=== PATIENT | female | born 1935 | race Hispanic/Latino ===

== ENCOUNTER 2018-06-08 14:41 | Inpatient (IN) | payer MEDICARE, BC ==
--- NOTE | 2018-06-08 15:25 | ED PDOC ---
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 History mostly obtained from grandchildren secondary to patient's progressively worsening dementia. Her family states that a neighbor with spare domingo was checking on patient and found her on her knees with a bloody nose. Patient is unsure if she loss consciousness but states she felt general tiredness and weakness after a dental exam this morning. Upon arrival to ED, patient reports feeling better with complaint of a right-sided headache. Otherwise, she denies any neck pain, leg pain, abdominal pain, shortness of breath, urinary complaint, numbness, or tingling sensation. Of note, patient has had recent nosebleeds prior to syncopal episode but also has Coumadin use. Cardio: Dr. Reese Yancey Past Medical History Reviewed: Historical Data, Nursing Documentation, Vital Signs Vital Signs: Last Vital Signs Temp 98.9 F 06/08/18 14:49 Pulse 60 06/08/18 14:49 Resp 18 06/08/18 14:49 BP 142/67 06/08/18 14:49 Pulse Ox 98 06/08/18 14:49 - Medical History PMH: CHF, Dementia, Diabetes, HTN, Hypercholesterolemia - Family History Family History: States: Unknown Family Hx - Home Medications Home Medications: Ambulatory Orders Medication Instructions Recorded Digoxin [Digitek] 125 mcg PO DAILY 06/08/18 Donepezil [Aricept] 10 mg PO HS 06/08/18 Furosemide [Lasix] 20 mg PO DAILY 06/08/18 Glyburide [Micronase] 1.25 mg PO DAILY 06/08/18 Lisinopril [Zestril] 5 mg PO DAILY 06/08/18 Metoprolol Succinate XL [Toprol XL] 200 mg PO DAILY 06/08/18 Pioglitazone [Actos] 15 mg PO DAILY 06/08/18 Potassium Chloride [K-Dur 20 mEq 20 meq PO DAILY 06/08/18 ER Tab] Sennosides A and B [Senokot Tab] 1 tab PO HS PRN 06/08/18 Warfarin [Coumadin] 2.5 mg PO DAILY 06/08/18 metFORMIN [glucOPHAGE] 850 mg PO BID 06/08/18 - Allergies Allergies/Adverse Reactions: Allergies Allergy/AdvReac Type Severity Reaction Status Date / Time fruit Allergy RASH Uncoded 06/08/18 14:49 Review of Systems ROS Statement: Except As Marked, All Systems Reviewed And Found Negative Constitutional: Positive for: Weakness, Malaise ENT: Positive for: Nose Discharge (blood) Respiratory: Negative for: Shortness of Breath Gastrointestinal: Negative for: Abdominal Pain Genitourinary Female: Negative for: Dysuria, Incontinence, Hematuria Musculoskeletal: Negative for: Neck Pain, Leg Pain Neurological: Positive for: Headache (right-siedd). Negative for: Numbness (or tingling sensation) Physical Exam - Reviewed Nursing Documentation Reviewed: Yes Vital Signs Reviewed: Yes - Physical Exam Appears: Positive for: Well, Non-toxic, No Acute Distress Head Exam: Positive for: ATRAUMATIC, NORMAL INSPECTION, NORMOCEPHALIC Skin: Positive for: Normal Color Eye Exam: Positive for: Normal appearance, EOMI, PERRL ENT: Positive for: Other (dried blood in right nare. (-) active bleeding). Negative for: Pharyngeal Erythema Neck: Positive for: Normal, Supple Cardiovascular/Chest: Positive for: Regular Rate, Rhythm, Chest Non Tender Respiratory: Positive for: Normal Breath Sounds. Negative for: Respiratory Distress Gastrointestinal/Abdominal: Positive for: Normal Exam, Soft. Negative for: Tenderness Extremity: Positive for: Normal ROM (upper/lower with 5/5 strength). Negative for: Pedal Edema, Calf Tenderness, Deformity, Swelling (or ecchymosis) Neurologic/Psych: Positive for: Alert, dictionary editor II-XII (grossly intact), Oriented. Negative for: Motor/Sensory Deficits, Aphasia - Laboratory Results Result Diagrams: 06/08/18 16:36 06/08/18 17:30 Interpretation Of Abn Labs: dig less then 0.4 - ECG ECG: Positive for: Interpreted By Me, Viewed By Me ECG Rhythm: Positive for: Atrial Fibrillation O2 Sat by Pulse Oximetry: 98 (RA) Pulse Ox Interpretation: Normal - Radiology X-Ray: Read By Radiologist X-Ray Interpretation: No Acute Disease - CT Scan/US ct Other Rad Studies (CT/US): Read By Radiologist Other Rad Interpretation: sinusitis - Progress ED Course And Treament: 185: Pending Dr. Yancey call back. Pt. with sinusitis, will give augmentin oral. Is not septic. No an acute infection. Afib uncontrolled causing elevated hr, not infectious etiology. Dr. Hilliard to take over care. Fu on Dr. Yancey. Medical Decision Making Medical Decision Making: Time: 152 Initial Plan: * Accucheck Scribe Attestation: Documented by Katia Duenas, acting as a scribe for Veto Rodriges MD. Provider Scribe Attestation: All medical record entries made by the Scribe were at my direction and personally dictated by me. I have reviewed the chart and agree that the record accurately reflects my personal performance of the history, physical exam, medical decision making, and the department course for this patient. I have also personally directed, reviewed, and agree with the discharge instructions and disposition. Disposition - Clinical Impression Clinical Impression: Sinusitis, Syncope, Afib - Patient ED Disposition Is Patient to be Admitted: Transfer of Care - Disposition Disposition Time: 19:03 Condition: FAIR Patient Signed Over To: Lorenza Hilliard
[2018-06-08] MEDS ORDERED: Sodium Chloride 0.9% 1,000 ML IV ONE (15:30)
--- NOTE | 2018-06-08 16:12 | RAD ---
Date of service: 06/08/2018 HISTORY: Code Stroke COMPARISON: No prior. FINDINGS: LUNGS: The lungs are well inflated and clear. PLEURA: No pleural effusions or pneumothorax. CARDIOVASCULAR: The heart is normal in size. No aortic atherosclerotic calcification present. OSSEOUS STRUCTURES: Within normal limits for the patient's age. VISUALIZED UPPER ABDOMEN: Normal. OTHER FINDINGS: None. IMPRESSION: No active pulmonary disease.
[2018-06-08 17:37] LABS: BASO % 0.3 % (0.0-2.0); LYMPH % 7.7 % (20.0-40.0); MEAN CELL VOLUME 84.5 fl (81.0-99.0); MEAN CORPUSCULAR HEMOGLOBIN 26.7 pg (27.0-31.0); MEAN CORPUSCULAR HGB CONC 31.6 g/dL (33.0-37.0); MEAN PLATELET VOLUME 9.5 fl (7.2-11.7); MONO # 1.2 K/uL (0.0-0.8); MONO % 9.4 % (0.0-10.0); NEUT # 10.4 K/uL (1.8-7.0); NEUT % 82.6 % (50.0-75.0); PLATELET COUNT 253 K/uL (130-400); WHITE BLOOD COUNT 12.5 K/uL (4.8-10.8)
[2018-06-08 17:49] LABS: ALB/GLOB RATIO 1.1 (1.0-2.1); ALBUMIN 4.3 g/dL (3.5-5.0); ALT/SGPT 26 U/L (9-52); AST/SGOT 25 U/L (14-36); BLOOD UREA NITROGEN 17 mg/dl (7-17); CALCIUM 10.1 mg/dL (8.4-10.2); GFR NON-AFRICAN AMERICAN 60; HDL CHOLESTEROL 51 MG/DL (30-70)
[2018-06-08 18:01] LABS: LDL CHOLESTEROL 92 mg/dL (0-129)
--- NOTE | 2018-06-08 18:16 | CT ---
Date of service: 06/08/2018 PROCEDURE: CT HEAD WITHOUT CONTRAST. HISTORY: weakness COMPARISON: None available. TECHNIQUE: Axial computed tomography images were obtained through the head/brain without intravenous contrast. Radiation dose: Total exam DLP = 742.03 mGy-cm. This CT exam was performed using one or more of the following dose reduction techniques: Automated exposure control, adjustment of the mA and/or kV according to patient size, and/or use of iterative reconstruction technique. FINDINGS: HEMORRHAGE: No intracranial hemorrhage. BRAIN: There are mild chronic microangiopathic changes. There is no mass, mass effect or abnormal extra-axial fluid collection. There is no territorial infarction. The midline sagittal structures are normal. VENTRICLES: There is mild age-related global parenchymal volume loss and proportionate enlargement of the ventricles and cortical sulci. CALVARIUM: There is no calvarial fracture or extracranial soft tissue swelling. PARANASAL SINUSES: There is high attenuation soft tissue in the right maxillary sinus, right ethmoid air cells and right frontal sinus with expansion of the right maxillary sinus. The left sided paranasal sinuses are predominantly clear. MASTOID AIR CELLS: Predominantly clear. OTHER FINDINGS: None. IMPRESSION: No acute intracranial abnormality. Mild chronic microangiopathic changes and mild age-related global parenchymal volume loss. 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
[2018-06-08] MEDS ORDERED: Amoxicillin-Clav 875-125 mg Tab PO STA (18:55)
[2018-06-08 19:07] LABS: INR 4.2
[2018-06-08 19:08] LABS: PROTHROMBIN TIME 47.6 Seconds (9.8-13.1)
[2018-06-08 19:09] LABS: PARTIAL THROMBOPLASTIN TIME 49.6 Seconds (25.6-37.1)
[2018-06-08] MEDS ORDERED: Digoxin 500 mcg/2ml (0.5 mg/2ml) Inj IVP STA (19:17)
[2018-06-08] MEDS ORDERED: Digoxin 500 mcg/2ml (0.5 mg/2ml) Inj ONE (19:59)
[2018-06-08 20:00] LABS: ANISOCYTOSIS SLIGHT; BANDS 5 % (0-2); HYPOCHROMIC SLIGHT; LYMPHOCYTE 9 % (20-50); MICROCYTOSIS SLIGHT; MONOCYTE 9 % (0-10); NEUTROPHIL 77 % (42-75); PLATELET ESTIMATE NORMAL (NORMAL); POIKILOCYTOSIS SLIGHT; TOTAL CELLS COUNTED 100
[2018-06-08] MEDS ORDERED: Amoxicillin-Clav 875-125 mg Tab PO ONE (20:00)
[2018-06-08 20:01] LABS: ACANTHOCYTES SLIGHT
[2018-06-09 05:53] LABS: PARTIAL THROMBOPLASTIN TIME 45.5 Seconds (25.6-37.1)
[2018-06-09] MEDS ORDERED: Influenza Vaccine (5 YR UP)/PF 60 MCG/0.5 ML SYR IM ONE (06:00)
[2018-06-09 06:28] LABS: INR 4.1; PROTHROMBIN TIME 46.3 Seconds (9.8-13.1)
[2018-06-09] MEDS: Digoxin 125 mcg (0.125 mg) Tab PO SCH (08:39)
[2018-06-09] MEDS: Metoprolol Succinate 100 mg XL Tab PO SCH (08:39)
--- NOTE | 2018-06-09 08:39 | CARD ---
APPROVED REPORT Date of service: 06/09/2018 EKG Measurement Heart [id number] <Conclusion> Atrial fibrillation ST abnormality, possible inferior subendocardial injury Abnormal ECG
[2018-06-09] MEDS: Potassium Chloride 20 mEq ER Tab PO SCH (08:41)
--- NOTE | 2018-06-09 08:47 | CARD ---
APPROVED REPORT Date of service: 06/08/2018 EKG Measurement Heart [id number] <Conclusion> Atrial fibrillation with rapid ventricular response Marked ST abnormality, possible inferolateral subendocardial injury Abnormal ECG
[2018-06-09] MEDS ORDERED: GLYBURIDE 1.25 MG PO SCH (09:00)
[2018-06-09] MEDS ORDERED: Digoxin 500 mcg/2ml (0.5 mg/2ml) Inj IVP ONE ×2 (09:32→19:39)
--- NOTE | 2018-06-09 09:44 | CP.PCM.HP ---
History of Present Illness - History of Present Illness History of Present Illness: This 82-year-old female who is known to me since her hospitalization in March 2013 was brought to the emergency room when she could not stand up from a chair. Her neighbors came to her help and called emergency medical facilities section director who brought her to the emergency room. Her patient steadfastly denies a fall. She has a history of diabetes and chronic atrial fibrillation and early dementia. She has never suffered a myocardial infarction and has congestive cardiac failure as a consequence of atrial fibrillation for which she takes furosemide. She has been on warfarin and gets her INR checked re gularly every 2 months and her warfarin dose is appropriately adjusted. During last year her main symptom has been significant lower back pain which hampers her physical activities. The patient denies pedal edema or orthopnea. She has been taking furosemide and potassium supplement. Physical examination shows an elderly lady who is alert awake coherent afebrile and is able to carry on a conversation while propped up in bed. Telemetry shows atrial fibrillation with a ventricular rate often in the range of 140 to 160 bpm. (Her serum digoxin level was found to be less than 0.4 g per mL.) Her blo od pressure was 150/70 mmHg. Her jugular venous pressure was not elevated there was no edema over her lower extremities. The pedal pulses were feeble. Extremities were warm and nailbeds were pink there was no central or peripheral cyanosis. There was no clubbing. The first and second heart sounds were normal there was no murmur or gallop. There were no rales. Her abdomen was soft liver and spleen are not palpable. Her electrocardiogram showed atrial fibrillation at rapid ventricular rate with ST abnormalities secondary to digitalis effect. There were no Q waves on the electric cart a gram. Review off her echocardiogram from her 2013 admission shows a preserved left ventricle systolic function with markedly dilated right and left atria. This is strongly suggestive off left ventricular diastolic dysfunction. Her lab data shows a normal hemoglobin and hematocrit with an INR of 4.1. Her BUN/creatinine and electrolytes were normal. Liver profile was normal. Impression: Atrial fibrillation with rapid ventricular rate. 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 Diabetes mellitus. Early dementia. Sinusitis. Patient's inability to stand up from a sitting position was most likely secondary to atrial fibrillation with very rapid heart rate as a consequence of for low serum digoxin level. The patient will be started on intravenous Cardizem drip to immediately control her heart rate she is getting additional digoxin to manage her heart rate. She will get an echocardiogram to evaluate his left ventricle systolic function since her last echocardiogram was in March 2013. Since her INR is 4.1 her warfarin is being held and daily INR would be monitored. She is started on Augmentin for sinusitis. Present on Admission - Present on Admission Any Indicators Present on Admission: No Past Patient History - Past Medical History & Family History Past Medical History?: Yes - Past Social History Smoking Status: Never Smoked - CARDIAC Hx Cardiac Disorders: Yes Hx Congestive Heart Failure: Yes Hx Hypercholesterolemia: Yes Hx Hypertension: Yes - PULMONARY Hx Respiratory Disorders: No - NEUROLOGICAL Hx Neurological Disorder: Yes Hx Dementia: Yes - HEENT Hx HEENT Problems: No - RENAL Hx Chronic Kidney Disease: No - ENDOCRINE/METABOLIC Hx Endocrine Disorders: No - HEMATOLOGICAL/ONCOLOGICAL Hx Blood Disorders: No - INTEGUMENTARY Hx Dermatological Problems: No - MUSCULOSKELETAL/RHEUMATOLOGICAL Hx Musculoskeletal Disorders: No Hx Falls: Yes - GASTROINTESTINAL Hx Gastrointestinal Disorders: No - GENITOURINARY/GYNECOLOGICAL Hx Genitourinary Disorders: No - PSYCHIATRIC Hx Psychophysiologic Disorder: No Hx Substance Use: No - SURGICAL HISTORY Hx Surgeries: No - ANESTHESIA Hx Anesthesia: No Hx Anesthesia Reactions: No Meds Allergies/Adverse Reactions: Allergies Allergy/AdvReac Type Severity Reaction Status Date / Time fruit Allergy RASH Uncoded 06/08/18 14:49 Results - Vital Signs Recent Vital Signs: Last Vital Signs Temp 97.2 F L 06/09/18 08:00 Pulse 110 H 06/09/18 08:43 Resp 18 06/09/18 08:00 BP 167/71 H 06/09/18 08:43 Pulse Ox 97 06/09/18 08:00 - Labs Result Diagrams: 06/08/18 16:36 06/08/18 17:30 Labs: Laboratory Results - last 24 hr 06/08/18 06/08/18 06/08/18 15:12 16:36 17:30 WBC 12.5 H RBC 4.50 Hgb 12.0 Hct 38.0 MCV 84.5 MCH 26.7 L MCHC 31.6 L RDW 13.0 Plt Count 253 MPV 9.5 Neut % (Auto) 82.6 H Lymph % (Auto) 7.7 L Harlan % (Auto) 9.4 Eos % (Auto) 0.0 Baso % (Auto) 0.3 Neut # (Auto) 10.4 H Lymph # (Auto) 1.0 Harlan # (Auto) 1.2 H Eos # (Auto) 0.0 Baso # (Auto) 0.0 Neutrophils % (Manual) 77 H Band Neutrophils % 5 H Lymphocytes % (Manual) 9 L Monocytes % (Manual) 9 Platelet Estimate Normal Hypochromasia (manual) Slight Poikilocytosis (manual Slight Anisocytosis (manual) Slight Microcytosis (manual) Slight Acanthocytes (Spur) Slight PT INR APTT Sodium 139 Potassium 3.9 Chloride 101 Carbon Dioxide 27 Anion Gap 15 BUN 17 Creatinine 0.9 Est GFR ( Amer) > 60 Est GFR (Non-Af Amer) 60 POC Glucose (mg/dL) 186 H Random Glucose 186 H Calcium 10.1 Total Bilirubin 0.8 AST 25 ALT 26 Alkaline Phosphatase 87 Troponin I 0.0260 Total Protein 8.1 Albumin 4.3 Globulin 3.9 Albumin/Globulin Ratio 1.1 Triglycerides 144 Cholesterol 157 LDL Cholesterol Direct 92 HDL Cholesterol 51 Digoxin Blood Type Antibody Screen BBK History Checked 06/08/18 06/08/18 06/08/18 17:30 17:30 18:20 WBC RBC Hgb Hct MCV MCH MCHC RDW Plt Count MPV Neut % (Auto) Lymph % (Auto) Harlan % (Auto) Eos % (Auto) Baso % (Auto) Neut # (Auto) Lymph # (Auto) Harlan # (Auto) Eos # (Auto) Baso # (Auto) Neutrophils % (Manual) Band Neutrophils % Lymphocytes % (Manual) Monocytes % (Manual) Platelet Estimate Hypochromasia (manual) Poikilocytosis (manual Anisocytosis (manual) Microcytosis (manual) Acanthocytes (Spur) PT 47.6 H* INR 4.2 APTT 49.6 H Sodium Potassium Chloride Carbon Dioxide Anion Gap BUN Creatinine Est GFR ( Amer) Est GFR (Non-Af Amer) POC Glucose (mg/dL) Random Glucose Calcium Total Bilirubin AST ALT Alkaline Phosphatase Troponin I Total Protein Albumin Globulin Albumin/Globulin Ratio Triglycerides Cholesterol LDL Cholesterol Direct HDL Cholesterol Digoxin < 0.4 L Blood Type O POSITIVE Antibody Screen Negative BBK History Checked Patient has bt 06/08/18 06/09/18 06/09/18 21:23 04:39 05:27 WBC RBC Hgb Hct MCV MCH MCHC RDW Plt Count MPV Neut % (Auto) Lymph % (Auto) Harlan % (Auto) Eos % (Auto) Baso % (Auto) Neut # (Auto) Lymph # (Auto) Harlan # (Auto) Eos # (Auto) Baso # (Auto) Neutrophils % (Manual) Band Neutrophils % Lymphocytes % (Manual) Monocytes % (Manual) Platelet Estimate Hypochromasia (manual) Poikilocytosis (manual Anisocytosis (manual) Microcytosis (manual) Acanthocytes (Spur) PT 46.3 H* INR 4.1 APTT 45.5 H Sodium Potassium Chloride Carbon Dioxide Anion Gap BUN Creatinine Est GFR ( Amer) Est GFR (Non-Af Amer) POC Glucose (mg/dL) 176 H 139 H Random Glucose Calcium Total Bilirubin AST ALT Alkaline Phosphatase Troponin I Total Protein Albumin Globulin Albumin/Globulin Ratio Triglycerides Cholesterol LDL Cholesterol Direct HDL Cholesterol Digoxin Blood Type Antibody Screen BBK History Checked
[2018-06-09] MEDS: Amoxicillin-Clav 875-125 mg Tab PO SCH ×2 (10:51→21:21)
[2018-06-10 05:50] LABS: PROTHROMBIN TIME 34.1 Seconds (9.8-13.1)
--- NOTE | 2018-06-10 09:23 | PQF ---
PROVIDER RESPONSE TEXT: Atrial fibrillation is known since 2012. So, it is chronic. REVIEWER QUERY TEXT: Atrial Fibrillation Type Atrial fibrillation is documented in the Medical Record. Please specify the type if known Such as: -- Chronic -- Paroxysmal -- Permanent -- Persistent -- Other, please specify H and P: A-fib with RVRCongestive cardiac failure which is left ventricular diastolic and chronic. Di abetes mellitus. Early dementia. Sinusitis. Patient's inability to stand up from a sitting position w as most likely secondary to atrial fibrillation with very rapid heart rate as a consequence of for lo w serum digoxin level. The patient will be started on intravenous Cardizem drip to immediately contro l her heart rate she is getting additional digoxin to manage her heart rate. She will get an echocard iogram to evaluate his left ventricle systolic function since her last echocardiogram was in March 04. Since her INR is 4.1 her warfarin is being held and daily INR would be monitored. The patient's Clinical Indicators include: -- Query created by: Eli Cohn on 06/09/2018 10:18 AM Electronically signed by: Reese Yancey MD 06/10/2018 9:21 AM
--- NOTE | 2018-06-10 09:23 | PQF ---
PROVIDER RESPONSE TEXT: The patient never lost conciousness. So, no syncope. REVIEWER QUERY TEXT: Symptom Underlying Cause Please document the underlying diagnosis causing the Syncope ? 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 Her family states that a neighbor with spare domingo was checking on patient and found her on her knees with a bloody nose. Patient is unsure if she loss consciousness; g eneral tiredness and weakness after a dental exam this morning Clinical Impression: Sinusitis, Syncope, Afib H and P: Atrial fibrillation with rapid ventricular rate. Congestive cardiac failure which is left ve ntricular diastolic and chronic. Diabetes mellitus. Early dementia. Sinusitis. Patient's inability to stand up from a sitting position was most likely secondary to atrial fibrillation with very rapid he art rate as a consequence of for low serum digoxin level. The patient's Clinical Indicators include: -- Query created by: Eli Cohn on 06/09/2018 10:16 AM Electronically signed by: Reese Yancey MD 06/10/2018 9:21 AM
[2018-06-10] MEDS: Digoxin 125 mcg (0.125 mg) Tab PO SCH (10:00)
[2018-06-10] MEDS: Amoxicillin-Clav 875-125 mg Tab PO SCH ×2 (10:00→21:53)
[2018-06-10] MEDS: Potassium Chloride 20 mEq ER Tab PO SCH (10:01)
[2018-06-10] MEDS: Metoprolol Succinate 100 mg XL Tab PO SCH (10:04)
[2018-06-10] MEDS ORDERED: Metoprolol Succinate 100 mg XL Tab PO SCH (10:30)
--- NOTE | 2018-06-10 10:37 | CP.PCM.PN ---
Subjective - Date & Time of Evaluation Date of Evaluation: 06/10/18 Time of Evaluation: 09:30 - Subjective Subjective: Saw patient this morning with her daughter in attendance. The patient reports that she slept well during the night and denies any palpitations or feeling of sudden shortness of breath. Telemetry continues to show atrial fibrillation with heart rates mostly between 100 and 120 bpm and has received multiple doses of IV digoxin to control her heart rate. This morning while still on intravenous Cardizem drip at 5 mg per hour her heart rate mostly ranges between 80 and 100 bpm. The patient has been on 200 mg of metoprolol succinate daily. This morning her serum digoxin level was 2.4 g per mL. The patient denies any feeling of nausea and has not had any vomiting. The patient is able to lie virtually flat and breathe comfortably at 16 breaths per minute and can carry on a conversation. Her blood pressure was 150/80 mmHg. Her jugular venous pressure was not elevated and there were no rales. This morning her INR was 3. I have ordered 1 mg of warfarin to be given today. The patient is hemodynamically stable and will be allowed to sit out of bed to eat her lunch. Physical therapy will evaluate her. I have spoken with her daughter at length regarding her care subsequent to her discharge, given the fact that severe lower back pain and leg weakness were part of the reason the patient could not help herself and called for help eventually leading to her arrival in the emergency room. A similar occurrence such as this, could certainly occur in future given weakness in her legs and severe lower back pain. Objective - Vital Signs/Intake and Output Vital Signs (last 24 hours): Temp Pulse Resp BP Pulse Ox 98.2 F 72 18 155/67 H 97 06/10/18 08:00 06/10/18 10:05 06/10/18 08:00 06/10/18 10:05 06/10/18 08:00 Intake and Output: 06/10/18 06/10/18 06:59 18:59 Intake Total 1140 Balance 1140 - Medications Medications: Current Medications Amoxicillin/Clavulanate Potassium (Augmentin 875 Mg-125 Mg Tab) 1 tab PO Q12 MARIE; Protocol Last Admin: 06/10/18 10:00 Dose: 1 tab Digoxin (Digoxin) 0.125 mg PO DAILY [facility] Last Admin: 06/10/18 10:00 Dose: 0.125 mg Donepezil HCl (Aricept) 10 mg PO HS [facility] Last Admin: 06/09/18 21:21 Dose: 10 mg Furosemide (Lasix) 20 mg PO DAILY [facility] Last Admin: 06/10/18 10:02 Dose: 20 mg Glyburide (Micronase) 1.25 mg PO DAILY@0800 [facility] Last Admin: 06/10/18 10:03 Dose: 1.25 mg Home Med (Patient's Own Medication) 0.7 unit OU DAILY [facility] Last Admin: 06/10/18 10:04 Dose: 0.7 unit Lisinopril (Zestril) 5 mg PO DAILY [facility] Last Admin: 06/10/18 10:05 Dose: 5 mg Metformin HCl (Glucophage) 850 mg PO BID [facility] Last Admin: 06/10/18 10:01 Dose: 850 mg Metoprolol Succinate (Toprol Xl) 200 mg PO DAILY [facility] Last Admin: 06/10/18 10:04 Dose: 200 mg Metoprolol Succinate (Toprol Xl) 100 mg PO DAILY [facility] Pioglitazone HCl (Actos) 15 mg PO DAILY [facility] Last Admin: 06/10/18 09:59 Dose: 15 mg Potassium Chloride (K-Dur 20 Meq Er Tab) 20 meq PO DAILY [facility] Last Admin: 06/10/18 10:01 Dose: 20 meq Sennosides (Senokot Tab) 8.6 mg PO HS PRN PRN Reason: Constipation Warfarin Sodium (Coumadin) 1 mg PO QD5 [facility]; Protocol Stop: 06/10/18 17:01 - Labs Labs: 06/08/18 16:36 06/08/18 17:30 PT 34.1 Seconds (9.8-13.1) H D 06/10/18 05:10 INR 3.0 06/10/18 05:10 APTT 45.5 Seconds (25.6-37.1) H 06/09/18 04:39
[2018-06-11] MEDS ORDERED: Metoprolol Succinate 100 mg XL Tab PO SCH (09:00)
[2018-06-11 09:31] LABS: INR 2.3; PROTHROMBIN TIME 26.1 Seconds (9.8-13.1)
[2018-06-11] MEDS: Amoxicillin-Clav 875-125 mg Tab PO SCH ×2 (09:48→22:13)
[2018-06-11] MEDS: Potassium Chloride 20 mEq ER Tab PO SCH (09:50)
--- NOTE | 2018-06-11 11:21 | CP.PCM.PN ---
Subjective - Date & Time of Evaluation Date of Evaluation: 06/11/18 Time of Evaluation: 10:00 - Subjective Subjective: The patient was comfortable overnight and was found sitting up in her bed eating her breakfast. She does not offer any symptoms at this point. Telemetry shows an improved heart rate between 80 bpm and 100 bpm after metoprolol dose was increased to 300 mg daily. Her blood pressure was 136/74 mmHg. Her jugular venous pressure was not elevated and there was no edema over her lower extremity. Her INR was 2.3 and her serum digoxin level was 1.8 g per mL. Her warfarin dose for today was ordered and her digoxin orally will resume tomorrow. The patient will sit out of bed today and be evaluated by physical therapist. The patient wishes to return home and not go for subacute rehabilitation. Her case was discussed with her daughter who indicates that her mother would prefer to go for physical therapy as an outpatient. Objective - Vital Signs/Intake and Output Vital Signs (last 24 hours): Temp Pulse Resp BP Pulse Ox 97.7 F 81 20 125/85 100 06/11/18 09:00 06/11/18 09:53 06/11/18 09:00 06/11/18 09:53 06/11/18 09:00 - Medications Medications: Current Medications Amoxicillin/Clavulanate Potassium (Augmentin 875 Mg-125 Mg Tab) 1 tab PO Q12 [facility]; Protocol Last Admin: 06/11/18 09:48 Dose: 1 tab Digoxin (Digoxin) 0.125 mg PO DAILY [facility] Last Admin: 06/10/18 10:00 Dose: 0.125 mg Donepezil HCl (Aricept) 10 mg PO HS [facility] Last Admin: 06/10/18 21:53 Dose: 10 mg Furosemide (Lasix) 20 mg PO DAILY [facility] Last Admin: 06/11/18 09:51 Dose: 20 mg Glyburide (Micronase) 1.25 mg PO DAILY@0800 [facility] Last Admin: 06/11/18 09:51 Dose: 1.25 mg Home Med (Patient's Own Medication) 0.7 unit OU DAILY [facility] Last Admin: 06/11/18 09:52 Dose: 0.7 unit Lisinopril (Zestril) 5 mg PO DAILY [facility] Last Admin: 06/11/18 09:53 Dose: 5 mg Metformin HCl (Glucophage) 850 mg PO BID [facility] Last Admin: 06/11/18 09:49 Dose: 850 mg Metoprolol Succinate (Toprol Xl) 300 mg PO DAILY [facility] Last Admin: 06/11/18 09:53 Dose: 300 mg Pioglitazone HCl (Actos) 15 mg PO DAILY [facility] Last Admin: 06/11/18 09:48 Dose: 15 mg Potassium Chloride (K-Dur 20 Meq Er Tab) 20 meq PO DAILY [facility] Last Admin: 06/11/18 09:50 Dose: 20 meq Sennosides (Senokot Tab) 8.6 mg PO HS PRN PRN Reason: Constipation Warfarin Sodium (Coumadin) 2.5 mg PO QD5 [facility]; Protocol Stop: 06/11/18 17:01 - Labs Labs: 06/08/18 16:36 06/08/18 17:30 PT 26.1 Seconds (9.8-13.1) H D 06/11/18 09:16 INR 2.3 06/11/18 09:16 APTT 45.5 Seconds (25.6-37.1) H 06/09/18 04:39
--- NOTE | 2018-06-11 13:24 | PCM.RRT ---
I.Reason for [employer]STING - A) Acute Change in Patient: Subjective: [employer] Time: 13:10 [employer] Arrival time: 13:12 [employer] Location: [facility] VS on Arrival: BP 181/112 HR 75 RR 16, O2Sat 95% on Oxygen, BS 181 S: [employer]ING called as per RN report after patient while sitting in the chair was found on the tele monitor running a severe bradycardia of HR 37s followed by a sudden flat line on tele associated with a brief moment of unresponsiveness, then patient was rapidly transferred to the bed and became responsive after stimulation. The patient is a 82 Y/O Female with PMHx of DM, HTN, HLD, CHF, admitted from ED after a syncopal episode and with diagnosis of Atrial fibrillation with rapid ventricular rate. As per nurse report patient received today in AM Metoprolol Succ 300 PO for Rx of A fib with RVR. Upon arriving to the patient's bedside during the [employer]ING patient was already found responsive, alert and oriented. Patient c/o feeling tired after the episode, but denied chest pain, SOB, abdominal pain, nausea or vomiting. Nurse reports patient had an involuntary BM during the brief unresponsive episode. O: HEENT: Normocephalic, Atraumatic. CV: RRR, S1 S2 present RESP: CTA gisel, no wheezing ABD: Soft, no tenderness EXT: No edema NEURO: AAOx3, no gross motor deficit. A/P The patient is a 82 Y/O Female with PMHx of DM, HTN, HLD, CHF, admitted from ED after a syncopal episode and with diagnosis of Atrial fibrillation with rapid ventricular rate. An [employer]MENT CASTING was called on the patient due to unresponsiveness and severe bradycardia possibly secondary to BetaBlocker toxicity. [employer] Interventions: -Telemonitoring -EKG stat -PMD and machine hamper maker consulted -BB put on hold Patient condition at the end of [employer]ING: Stable, repeat VS: BP 176/80 HR 75 Ox Sat 97%
--- NOTE | 2018-06-11 20:30 | CARD ---
APPROVED REPORT Date of service: 06/11/2018 EKG Measurement Heart [id number] <Conclusion> Atrial fibrillation Marked ST abnormality, possible inferior subendocardial injury Abnormal ECG
[2018-06-12 08:32] LABS: PROTHROMBIN TIME 39.9 Seconds (9.8-13.1)
[2018-06-12 08:34] LABS: INR 3.5
[2018-06-12] MEDS: Amoxicillin-Clav 875-125 mg Tab PO SCH ×2 (08:54→21:00)
[2018-06-12] MEDS: Potassium Chloride 20 mEq ER Tab PO SCH (08:55)
[2018-06-12] MEDS ORDERED: Metoprolol Succinate 100 mg XL Tab PO ONE (11:00)
--- NOTE | 2018-06-12 18:42 | CP.PCM.PN ---
Subjective - Date & Time of Evaluation Date of Evaluation: 06/12/18 Time of Evaluation: 18:00 - Subjective Subjective: The patient had a long pause while on 300 mg of metoprolol yesterday during which she had a syncopal episode while she sat in a chair. Subsequently she has been free of any further syncopal episodes but a single episode of 2.3 second pause was detected early this morning. Otherwise her heart rate has been between 90 and 110 bpm. Her blood pressure is 130/74 mmHg. There is no evidence of congestive cardiac failure. She received 100 mg of metoprolol today. Her INR was 3.4 and warfarin was withheld. The patient will be allowed to sit out of bed starting tomorrow. Objective - Vital Signs/Intake and Output Vital Signs (last 24 hours): Temp Pulse Resp BP Pulse Ox 98.8 F 84 17 116/67 98 06/12/18 16:08 06/12/18 16:08 06/12/18 16:08 06/12/18 16:08 06/12/18 16:08 - Medications Medications: Current Medications Acetaminophen (Tylenol 325mg Tab) 650 mg PO Q4 PRN PRN Reason: Pain, Mild (1-3) Last Admin: 06/12/18 12:14 Dose: 650 mg Amoxicillin/Clavulanate Potassium (Augmentin 875 Mg-125 Mg Tab) 1 tab PO Q12 [facility]; Protocol Last Admin: 06/12/18 08:54 Dose: 1 tab Digoxin (Digoxin) 0.125 mg PO DAILY [facility] Last Admin: 06/10/18 10:00 Dose: 0.125 mg Donepezil HCl (Aricept) 10 mg PO HS [facility] Last Admin: 06/11/18 22:13 Dose: 10 mg Furosemide (Lasix) 20 mg PO DAILY [facility] Last Admin: 06/12/18 08:55 Dose: 20 mg Glyburide (Micronase) 1.25 mg PO DAILY@0800 [facility] Last Admin: 06/12/18 08:57 Dose: 1.25 mg Home Med (Patient's Own Medication) 0.7 unit OU DAILY [facility] Last Admin: 06/12/18 08:59 Dose: 0.7 unit Lisinopril (Zestril) 5 mg PO DAILY [facility] Last Admin: 06/12/18 08:59 Dose: 5 mg Metformin HCl (Glucophage) 850 mg PO BID [facility] Last Admin: 06/12/18 08:55 Dose: 850 mg Metoprolol Succinate (Toprol Xl) 300 mg PO DAILY [facility] Last Admin: 06/11/18 09:53 Dose: 300 mg Pioglitazone HCl (Actos) 15 mg PO DAILY [facility] Last Admin: 06/12/18 08:54 Dose: 15 mg Potassium Chloride (K-Dur 20 Meq Er Tab) 20 meq PO DAILY [facility] Last Admin: 06/12/18 08:55 Dose: 20 meq Sennosides (Senokot Tab) 8.6 mg PO HS PRN PRN Reason: Constipation - Labs Labs: 06/08/18 16:36 06/08/18 17:30 PT 39.9 Seconds (9.8-13.1) H D 06/12/18 05:15 INR 3.5 06/12/18 05:15 APTT 45.5 Seconds (25.6-37.1) H 06/09/18 04:39
[2018-06-13 07:47] LABS: PROTHROMBIN TIME 43.8 Seconds (9.8-13.1)
[2018-06-13 07:57] LABS: INR 3.8
[2018-06-13] MEDS: Amoxicillin-Clav 875-125 mg Tab PO SCH ×2 (09:20→21:57)
[2018-06-13] MEDS: Digoxin 125 mcg (0.125 mg) Tab PO SCH (09:22)
[2018-06-13] MEDS: Potassium Chloride 20 mEq ER Tab PO SCH (09:23)
[2018-06-13] MEDS ORDERED: Metoprolol Succinate 100 mg XL Tab PO ONE (18:26)
[2018-06-14 06:12] LABS: INR 2.6; PROTHROMBIN TIME 29.5 Seconds (9.8-13.1)
[2018-06-14] MEDS: Digoxin 125 mcg (0.125 mg) Tab PO SCH (09:21)
[2018-06-14] MEDS: Amoxicillin-Clav 875-125 mg Tab PO SCH (09:21)
[2018-06-14] MEDS: Potassium Chloride 20 mEq ER Tab PO SCH (09:23)
--- NOTE | 2018-06-14 10:13 | CP.PCM.PN ---
Subjective - Date & Time of Evaluation Date of Evaluation: 06/14/18 Time of Evaluation: 09:30 - Subjective Subjective: Following long pauses on 300 mg of Metoprolol, pt has been on 100 Mg of metoprolol daily HR on telemetry mostly 100-140 BPM BP 140/70 mm Hg No rales, no gallop INR today 2.6 (warfarin ordered) pt now on Metoprolol 200 mg daily (With digoxin 0.125 mg daily) Pt to start sitting OOB Objective - Vital Signs/Intake and Output Vital Signs (last 24 hours): Temp Pulse Resp BP Pulse Ox 98.6 F 78 20 167/73 H 100 06/14/18 08:18 06/14/18 09:24 06/14/18 08:18 06/14/18 09:24 06/14/18 08:18 Intake and Output: 06/14/18 06/14/18 06:59 18:59 Intake Total 1200 Output Total 4 Balance 1196 - Medications Medications: Current Medications Acetaminophen (Tylenol 325mg Tab) 650 mg PO Q4 PRN PRN Reason: Pain, Mild (1-3) Last Admin: 06/12/18 12:14 Dose: 650 mg Digoxin (Digoxin) 0.125 mg PO DAILY [facility] Last Admin: 06/14/18 09:21 Dose: 0.125 mg Donepezil HCl (Aricept) 10 mg PO HS [facility] Last Admin: 06/13/18 23:54 Dose: 10 mg Furosemide (Lasix) 20 mg PO DAILY [facility] Last Admin: 06/14/18 09:23 Dose: 20 mg Glyburide (Micronase) 1.25 mg PO DAILY@0800 [facility] Last Admin: 06/14/18 09:23 Dose: 1.25 mg Home Med (Patient's Own Medication) 0.7 unit OU DAILY [facility] Last Admin: 06/14/18 09:25 Dose: 0.7 unit Lisinopril (Zestril) 5 mg PO DAILY [facility] Last Admin: 06/14/18 09:24 Dose: 5 mg Metformin HCl (Glucophage) 850 mg PO BID [facility] Last Admin: 06/14/18 09:21 Dose: 850 mg Metoprolol Succinate (Toprol Xl) 200 mg PO DAILY [facility] Nystatin (Nystop Topical Powder) 1 applic TOP TID [facility] Last Admin: 06/14/18 09:21 Dose: 1 applic Pioglitazone HCl (Actos) 15 mg PO DAILY [facility] Last Admin: 06/14/18 09:24 Dose: 15 mg Potassium Chloride (K-Dur 20 Meq Er Tab) 20 meq PO DAILY [facility] Last Admin: 06/14/18 09:23 Dose: 20 meq Sennosides (Senokot Tab) 8.6 mg PO HS PRN PRN Reason: Constipation Warfarin Sodium (Coumadin) 2.5 mg PO QD5 [facility]; Protocol Stop: 06/14/18 17:01 - Labs Labs: 06/08/18 16:36 06/08/18 17:30 PT 29.5 Seconds (9.8-13.1) H D 06/14/18 04:20 INR 2.6 06/14/18 04:20 APTT 45.5 Seconds (25.6-37.1) H 06/09/18 04:39
[2018-06-14] MEDS: Metoprolol Succinate 100 mg XL Tab PO SCH (10:43)
[2018-06-15 05:28] LABS: INR 2.8; PROTHROMBIN TIME 31.9 Seconds (9.8-13.1)
[2018-06-15 05:36] LABS: ALBUMIN 3.4 g/dL (3.5-5.0); ALT/SGPT 21 U/L (9-52); AST/SGOT 22 U/L (14-36); BLOOD UREA NITROGEN 16 mg/dl (7-17); CALCIUM 9.4 mg/dL (8.4-10.2); GFR NON-AFRICAN AMERICAN > 60
[2018-06-15] MEDS: Digoxin 125 mcg (0.125 mg) Tab PO SCH (09:10)
[2018-06-15] MEDS: Potassium Chloride 20 mEq ER Tab PO SCH (09:11)
[2018-06-15] MEDS: Metoprolol Succinate 100 mg XL Tab PO SCH (09:13)
--- NOTE | 2018-06-15 09:17 | CP.PCM.PN ---
Subjective - Date & Time of Evaluation Date of Evaluation: 06/15/18 Time of Evaluation: 09:00 - Subjective Subjective: The patient dangled for meals yesterday without any difficulty. On telemetry she displays atrial fibrillation at moderate heart rates with heart rate as low as mid 40s during sleep and late in the evening as high as 120 bpm. She denies any palpitations or symptoms of congestive cardiac failure. Her labs show an INR of 2.8 and warfarin was ordered for today. Her BUN/creatinine and electrolytes were normal. I have instructed the nurses to start ambulating her. If she tolerates this she will be sent to transitional care unit before returning home. Objective - Vital Signs/Intake and Output Vital Signs (last 24 hours): Temp Pulse Resp BP Pulse Ox 98.5 F 73 20 126/58 L 98 06/15/18 00:49 06/15/18 09:13 06/15/18 00:49 06/15/18 09:13 06/15/18 00:49 Intake and Output: 06/15/18 06/15/18 06:59 18:59 Intake Total 240 Balance 240 - Medications Medications: Current Medications Acetaminophen (Tylenol 325mg Tab) 650 mg PO Q4 PRN PRN Reason: Pain, Mild (1-3) Last Admin: 06/12/18 12:14 Dose: 650 mg Digoxin (Digoxin) 0.125 mg PO DAILY [facility] Last Admin: 06/15/18 09:10 Dose: 0.125 mg Donepezil HCl (Aricept) 10 mg PO HS [facility] Last Admin: 06/14/18 22:00 Dose: 10 mg Furosemide (Lasix) 20 mg PO DAILY [facility] Last Admin: 06/15/18 09:11 Dose: 20 mg Glyburide (Micronase) 1.25 mg PO DAILY@0800 [facility] Last Admin: 06/15/18 09:12 Dose: 1.25 mg Home Med (Patient's Own Medication) 0.7 unit OU DAILY [facility] Last Admin: 06/15/18 09:13 Dose: 0.7 unit Lisinopril (Zestril) 5 mg PO DAILY [facility] Last Admin: 06/15/18 09:13 Dose: 5 mg Metformin HCl (Glucophage) 850 mg PO BID [facility] Last Admin: 06/15/18 09:10 Dose: 850 mg Metoprolol Succinate (Toprol Xl) 200 mg PO DAILY [facility] Last Admin: 06/15/18 09:13 Dose: 200 mg Nystatin (Nystop Topical Powder) 1 applic TOP TID [facility] Last Admin: 06/15/18 09:12 Dose: 1 applic Pioglitazone HCl (Actos) 15 mg PO DAILY [facility] Last Admin: 06/15/18 09:10 Dose: 15 mg Potassium Chloride (K-Dur 20 Meq Er Tab) 20 meq PO DAILY [facility] Last Admin: 06/15/18 09:11 Dose: 20 meq Sennosides (Senokot Tab) 8.6 mg PO HS PRN PRN Reason: Constipation Warfarin Sodium (Coumadin) 2.5 mg PO QD5 [facility]; Protocol Stop: 06/15/18 17:01 - Labs Labs: 06/08/18 16:36 06/15/18 05:04 PT 31.9 Seconds (9.8-13.1) H 06/15/18 05:04 INR 2.8 06/15/18 05:04 APTT 45.5 Seconds (25.6-37.1) H 06/09/18 04:39
[2018-06-16 06:21] LABS: PROTHROMBIN TIME 34.4 Seconds (9.8-13.1)
[2018-06-16] MEDS: Digoxin 125 mcg (0.125 mg) Tab PO SCH (08:31)
[2018-06-16] MEDS: Potassium Chloride 20 mEq ER Tab PO SCH (08:33)
--- NOTE | 2018-06-16 08:35 | CP.PCM.PN ---
Subjective - Date & Time of Evaluation Date of Evaluation: 06/16/18 Time of Evaluation: 08:20 - Subjective Subjective: The patient was found resting comfortably in her bed. She sat up in a chair for an extended period of time and also went to the bathroom with a nurse's aide couple of times during that period Telemetry during this time showed a heart rate between 80 bpm and 100 bpm while she was out of bed. When sleeping she has had a heart rate as low as mid 40s. She is hemodynamically stable. Her INR was 3 today. Warfarin has been ordered. The patient will undergo further physical therapy today to see if she tolerates ambulation and to what extent she can be independent. The patient and her daughter had expressed the desire to return home as soon as she is able to. The patient wishes to go for physical therapy if she needs it as an outpatient. Objective - Vital Signs/Intake and Output Vital Signs (last 24 hours): Temp Pulse Resp BP Pulse Ox 98.4 F 72 20 112/71 98 06/16/18 07:33 06/16/18 07:33 06/16/18 07:33 06/16/18 07:33 06/16/18 07:33 - Medications Medications: Current Medications Acetaminophen (Tylenol 325mg Tab) 650 mg PO Q4 PRN PRN Reason: Pain, Mild (1-3) Last Admin: 06/12/18 12:14 Dose: 650 mg Digoxin (Digoxin) 0.125 mg PO DAILY [facility] Last Admin: 06/15/18 09:10 Dose: 0.125 mg Donepezil HCl (Aricept) 10 mg PO HS [facility] Last Admin: 06/15/18 21:50 Dose: 10 mg Furosemide (Lasix) 20 mg PO DAILY [facility] Last Admin: 06/15/18 09:11 Dose: 20 mg Glyburide (Micronase) 1.25 mg PO DAILY@0800 [facility] Last Admin: 06/15/18 09:12 Dose: 1.25 mg Home Med (Patient's Own Medication) 0.7 unit OU DAILY [facility] Last Admin: 06/15/18 09:13 Dose: 0.7 unit Lisinopril (Zestril) 5 mg PO DAILY [facility] Last Admin: 06/15/18 09:13 Dose: 5 mg Metformin HCl (Glucophage) 850 mg PO BID [facility] Last Admin: 06/15/18 17:24 Dose: 850 mg Metoprolol Succinate (Toprol Xl) 200 mg PO DAILY [facility] Last Admin: 06/15/18 09:13 Dose: 200 mg Nystatin (Nystop Topical Powder) 1 applic TOP TID [facility] Last Admin: 06/15/18 17:24 Dose: 1 applic Pioglitazone HCl (Actos) 15 mg PO DAILY [facility] Last Admin: 06/15/18 09:10 Dose: 15 mg Potassium Chloride (K-Dur 20 Meq Er Tab) 20 meq PO DAILY [facility] Last Admin: 06/15/18 09:11 Dose: 20 meq Sennosides (Senokot Tab) 8.6 mg PO HS PRN PRN Reason: Constipation Warfarin Sodium (Coumadin) 1 mg PO QD5 [facility]; Protocol Stop: 06/16/18 17:01 - Labs Labs: 06/08/18 16:36 06/15/18 05:04 PT 34.4 Seconds (9.8-13.1) H 06/16/18 04:45 INR 3.0 06/16/18 04:45 APTT 45.5 Seconds (25.6-37.1) H 06/09/18 04:39
[2018-06-16] MEDS: Metoprolol Succinate 100 mg XL Tab PO SCH (08:36)
[2018-06-17 05:10] VITALS: RESP 18
[2018-06-17 06:06] LABS: INR 3.7
[2018-06-17 06:11] LABS: PROTHROMBIN TIME 42.3 Seconds (9.8-13.1)
[2018-06-17 06:19] LABS: ALBUMIN 3.4 g/dL (3.5-5.0); ALT/SGPT 36 U/L (9-52); AST/SGOT 39 U/L (14-36); BLOOD UREA NITROGEN 18 mg/dl (7-17); CALCIUM 9.5 mg/dL (8.4-10.2); GFR NON-AFRICAN AMERICAN > 60
[2018-06-17 07:58] VITALS: TEMP 98.3
[2018-06-17] MEDS: Potassium Chloride 20 mEq ER Tab PO SCH (09:03)
[2018-06-17] MEDS: Digoxin 125 mcg (0.125 mg) Tab PO SCH (09:03)
[2018-06-17] MEDS: Metoprolol Succinate 100 mg XL Tab PO SCH (09:06)
[2018-06-17 09:07] VITALS: PULSE 80
--- NOTE | 2018-06-17 09:27 | CP.PCM.PN ---
Subjective - Date & Time of Evaluation Date of Evaluation: 06/17/18 Time of Evaluation: 08:40 - Subjective Subjective: the patient was found in bed this morning comfortably resting and eating her breakfast. The patient was able to participate in physical therapy and ambulate in the room with little discomfort. Her telemetry shows atrial fibrillation at moderate heart rates. During sleep she often has a heart rate in high 40s and low 50s. Now that she is awake her heart rate is mostly between 70 and 80 bpm. She has no evidence of volume overload. Today's INR was 3.7 and warfarin has been held. The patient was offered additional physical therapy in transitional care unit before returning home but she steadfastly declines. I have discussed my offer for additional physical therapy here in the hospital before returning home with her daughter who also declines this offered. Both the patient and her daughter prefer going to physical therapy as an outpatient which she has done for approximately 2 years. The patient will continue to take the same medications at home and a list has been provided to her. Only her warfarin has been changed from 2.5 mg to 1 mg every day. the patient will see me for a follow-up visit within 10 days. Objective - Vital Signs/Intake and Output Vital Signs (last 24 hours): Temp Pulse Resp BP Pulse Ox 98.3 F 80 18 147/68 97 06/17/18 07:58 06/17/18 09:06 06/17/18 07:58 06/17/18 09:07 06/17/18 07:58 - Medications Medications: Current Medications Acetaminophen (Tylenol 325mg Tab) 650 mg PO Q4 PRN PRN Reason: Pain, Mild (1-3) Last Admin: 06/12/18 12:14 Dose: 650 mg Digoxin (Digoxin) 0.125 mg PO DAILY [facility] Last Admin: 06/17/18 09:03 Dose: 0.125 mg Donepezil HCl (Aricept) 10 mg PO HS [facility] Last Admin: 06/16/18 21:04 Dose: 10 mg Furosemide (Lasix) 20 mg PO DAILY [facility] Last Admin: 06/17/18 09:07 Dose: 20 mg Glyburide (Micronase) 1.25 mg PO DAILY@0800 [facility] Last Admin: 06/17/18 09:05 Dose: 1.25 mg Home Med (Patient's Own Medication) 0.7 unit OU DAILY [facility] Last Admin: 06/17/18 09:07 Dose: 0.7 unit Lisinopril (Zestril) 5 mg PO DAILY [facility] Last Admin: 06/17/18 09:03 Dose: 5 mg Metformin HCl (Glucophage) 850 mg PO BID [facility] Last Admin: 06/17/18 09:04 Dose: 850 mg Metoprolol Succinate (Toprol Xl) 200 mg PO DAILY [facility] Last Admin: 06/17/18 09:06 Dose: 200 mg Nystatin (Nystop Topical Powder) 1 applic TOP TID [facility] Last Admin: 06/17/18 09:06 Dose: 1 applic Pioglitazone HCl (Actos) 15 mg PO DAILY [facility] Last Admin: 06/17/18 09:04 Dose: 15 mg Potassium Chloride (K-Dur 20 Meq Er Tab) 20 meq PO DAILY [facility] Last Admin: 06/17/18 09:03 Dose: 20 meq Sennosides (Senokot Tab) 8.6 mg PO HS PRN PRN Reason: Constipation Last Admin: 06/17/18 09:04 Dose: 8.6 mg - Labs Labs: 06/08/18 16:36 06/17/18 04:25 PT 42.3 Seconds (9.8-13.1) H* 06/17/18 04:25 INR 3.7 06/17/18 04:25 APTT 45.5 Seconds (25.6-37.1) H 06/09/18 04:39
--- NOTE | 2018-06-17 09:33 | CP.PCM.DIS ---
Provider - Provider Date of Admission: 06/08/18 19:16 Attending physician: Reese Yancey MD Time Spent in preparation of Discharge (in minutes): 45 Hospital Course - Lab Results Lab Results: Micro Results 06/08/18 19:29 Blood-Venous Blood Culture - Final NO GROWTH AFTER 5 DAYS 06/08/18 19:29 Blood-Venous Gram Stain - Final TEST NOT PERFORMED 06/08/18 19:19 Blood-Venous Blood Culture - Final NO GROWTH AFTER 5 DAYS 06/08/18 19:19 Blood-Venous Gram Stain - Final TEST NOT PERFORMED Most Recent Lab Values WBC 12.5 K/uL (4.8-10.8) H 06/08/18 16:36 RBC 4.50 Mil/uL (3.80-5.20) 06/08/18 16:36 Hgb 12.0 g/dL (12.0-16.0) 06/08/18 16:36 Hct 38.0 % (34.0-47.0) 06/08/18 16:36 MCV 84.5 fl (81.0-99.0) 06/08/18 16:36 MCH 26.7 pg (27.0-31.0) L 06/08/18 16:36 MCHC 31.6 g/dL (33.0-37.0) L 06/08/18 16:36 RDW 13.0 % (11.5-14.5) 06/08/18 16:36 Plt Count 253 K/uL (130-400) 06/08/18 16:36 MPV 9.5 fl (7.2-11.7) 06/08/18 16:36 Neut % (Auto) 82.6 % (50.0-75.0) H 06/08/18 16:36 Lymph % (Auto) 7.7 % (20.0-40.0) L 06/08/18 16:36 [place] % (Auto) 9.4 % (0.0-10.0) 06/08/18 16:36 Eos % (Auto) 0.0 % (0.0-4.0) 06/08/18 16:36 Baso % (Auto) 0.3 % (0.0-2.0) 06/08/18 16:36 Neut # (Auto) 10.4 K/uL (1.8-7.0) H 06/08/18 16:36 Lymph # (Auto) 1.0 K/uL (1.0-4.3) 06/08/18 16:36 [place] # (Auto) 1.2 K/uL (0.0-0.8) H 06/08/18 16:36 Eos # (Auto) 0.0 K/uL (0.0-0.7) 06/08/18 16:36 Baso # (Auto) 0.0 K/uL (0.0-0.2) 06/08/18 16:36 Neutrophils % (Manual) 77 % (42-75) H 06/08/18 16:36 Band Neutrophils % 5 % (0-2) H 06/08/18 16:36 Lymphocytes % (Manual) 9 % (20-50) L 06/08/18 16:36 Monocytes % (Manual) 9 % (0-10) 06/08/18 16:36 Platelet Estimate Normal (NORMAL) 06/08/18 16:36 Hypochromasia (manual) Slight 06/08/18 16:36 Poikilocytosis (manual Slight 06/08/18 16:36 Anisocytosis (manual) Slight 06/08/18 16:36 Microcytosis (manual) Slight 06/08/18 16:36 Acanthocytes (Spur) Slight 06/08/18 16:36 PT 42.3 Seconds (9.8-13.1) H* 06/17/18 04:25 INR 3.7 06/17/18 04:25 APTT 45.5 Seconds (25.6-37.1) H 06/09/18 04:39 Sodium 137 mmol/l (132-148) 06/17/18 04:25 Potassium 4.0 MMOL/L (3.6-5.0) 06/17/18 04:25 Chloride 103 mmol/L (98-107) 06/17/18 04:25 Carbon Dioxide 27 mmol/L (22-30) 06/17/18 04:25 Anion Gap 11 (10-20) 06/17/18 04:25 BUN 18 mg/dl (7-17) H 06/17/18 04:25 Creatinine 0.8 mg/dl (0.7-1.2) 06/17/18 04:25 Est GFR ( Amer) > 60 06/17/18 04:25 Est GFR (Non-Af Amer) > 60 06/17/18 04:25 POC Glucose (mg/dL) 138 mg/dL (65-110) H 06/17/18 05:51 Random Glucose 145 mg/dL (65-105) H 06/17/18 04:25 Hemoglobin A1c 7.2 % (4.2-6.5) H 06/08/18 16:36 Calcium 9.5 mg/dL (8.4-10.2) 06/17/18 04:25 Total Bilirubin 0.3 mg/dl (0.2-1.3) 06/17/18 04:25 AST 39 U/L (14-36) H D 06/17/18 04:25 ALT 36 U/L (9-52) 06/17/18 04:25 Alkaline Phosphatase 81 U/L (38-126) 06/17/18 04:25 Troponin I 0.0260 ng/mL (0.00-0.120) 06/08/18 17:30 Total Protein 6.8 G/DL (6.3-8.2) 06/17/18 04:25 Albumin 3.4 g/dL (3.5-5.0) L 06/17/18 04:25 Globulin 3.4 gm/dL (2.2-3.9) 06/17/18 04:25 Albumin/Globulin Ratio 1.0 (1.0-2.1) 06/17/18 04:25 Triglycerides 144 mg/DL (0-149) 06/08/18 17:30 Cholesterol 157 mg/dL (0-199) 06/08/18 17:30 LDL Cholesterol Direct 92 mg/dL (0-129) 06/08/18 17:30 HDL Cholesterol 51 MG/DL (30-70) 06/08/18 17:30 Digoxin 1.1 ng/mL (0.8-2.0) 06/15/18 05:04 Blood Type O POSITIVE 06/08/18 17:30 Antibody Screen Negative 06/08/18 17:30 BBK History Checked Patient has bt 06/08/18 17:30 - Hospital Course Hospital Course: this 82-year-old female with hypertension diabetes and chronic atrial fibrillation and early dementia arrived by ambulance in the hospital after being unable to help herself while getting out of a chair and called for help eventually an ambulance crew brought her to the emergency room. She denied falling or hurting herself in any way. Physical examination showed persistent atrial fibrillation with rapid heart rate but otherwise she did not have any volume overload. The rest of her vital signs were stable. During her hospitalization increasing her metoprolol from 200 mg to 300 mg every day precipitated a 5 second pause and promptly the metoprolol does was reduced. Initially 100 mg a day for couple of days and eventually 200 mg a day along with 0.125 mg of digoxin and Aricept for her dementia. Her renal function and electrolytes remained stable. Her INR was monitored daily and Coumadin dose was adjusted appropriately. The patient finally underwent physical therapy and tolerated it well. She felt comfortable about returning home as also her daughter who watched her ambulate in the room. Both the patient and her daughter where offered the option of having an additional physical therapy in the hospital in transitional care unit and both of them declined. Accordingly the patient was sent home and instructed to continue her physical therapy as an outpatient. Her INR on the day of discharge was 3.7 and warfarin was held and that does off warfarin was reduced from 2.5 mg every day to 1 mg every day. A prescription for this was given to her. The patient will see me as an outpatient. Her final diagnosis was hypertension diabetes mellitus chronic atrial fibrillation with early dementia. Patient's condition at the time of discharge is satisfactory. Diet medication activities were explained to her and her daughter. She will see me as an outpatient within 10 days. Discharge Exam - Head Exam Head Exam: ATRAUMATIC, NORMAL INSPECTION, NORMOCEPHALIC Discharge Plan - Follow Up Plan Condition: FAIR Disposition: HOME/ ROUTINE Instructions: Atrial Fibrillation (DC), Syncope (Fainting) (DC) Referrals: Reese Yancey MD [Family Provider] -
[2018-06-17 11:53] VITALS: BP 122/73; PULSE 98; O2SAT 100
== END 2018-06-17 12:00 | disposition home or self-care (01) | DRG 309 ==
LOC: H.ER 14:41 → H.ERHOLD 19:16 → H.TEL 20:56
PROVIDERS: ADMIT Internal Medicine Cardiovascular Disease; ATTEND Internal Medicine Cardiovascular Disease
DX: I48.2 Chronic atrial fibrillation (principal); I50.32 Chronic diastolic (congestive) heart failure; I11.0 Hypertensive heart disease with heart failure; E11.9 Type 2 diabetes mellitus without complications; J32.1 Chronic frontal sinusitis; J32.2 Chronic ethmoidal sinusitis; J32.0 Chronic maxillary sinusitis; F03.90 Unspecified dementia, unspecified severity, without behavioral disturbance, psychotic disturbance, mood disturbance, and anxiety; I48.1 Persistent atrial fibrillation; Z23 Encounter for immunization; E78.00 Pure hypercholesterolemia, unspecified; Z91.018 Allergy to other foods